=== PATIENT | male | born 1985 | race Caucasian/White ===

== ENCOUNTER 2021-05-25 21:34 | Emergency (ER) | payer BC, MEDICAID ==
[2021-05-25] MEDS ORDERED: Tetracaine HCl/PF 0.5% 4 ML Bottle EYEBOTH ONE (22:00)
[2021-05-25] MEDS ORDERED: Fluorescein 1 MG Ophth Strip EYEBOTH ONE (22:00)
[2021-05-25] MEDS ORDERED: diphenhydrAMINE 50 MG Cap PO ONE (22:44)
== END 2021-05-25 23:18 | disposition home or self-care (01) ==
LOC: MW.ED 21:34
DX: L25.9 Unspecified contact dermatitis, unspecified cause (principal)
CPT/HCPCS: 99282; A9270